=== PATIENT | female | born 1960 | race Caucasian/White ===

== ENCOUNTER 2020-04-27 15:17 | Inpatient (IN) | payer OTHER ==
[~2020-04-27] VITALS: Ht 160 cm; Wt 93.0 kg
[~2020-04-27 15:17] MED LIST: ADVAIR 250-501 EACH INH; CARISOPRODOL 3350 MG PO; CIPRO PO; CIPROFLOXACIN500 M3 PO; DILAUDID 4 MG TA4 M1 PO; FENTANYL PATCH75 MCG TP; FISH OIL 1,0001 EAC5 PO; FOLIC ACID 40400 MC1; HYDROCODON-ACE1 EAC5; KEFLEX500 MG PO; LEVSIN SL; PROTONIX40 M2; PROTONIX40 M2 PO; PROVENTIL; PYRIDIUM100 MG PO; SPIRIVA IH; VENTOLIN HFA INH8 GM INH; VESANOID10 MG; XANAX XR2 MG PO; ZANTAC 150MG T150 M1 OR
[2020-04-27 19:40] VITALS: BP 136/70
--- NOTE | 2020-04-27 19:40 | NUR ---
Pt. admitted to the unit from [facility]. Pt. is alert and oriented. She offers no complaints at this time. Pt. is steady on her feet. Amanda MILLER called and informed of admission.
[2020-04-27] MEDS ORDERED: LIDODERM1 EACH TOP (20:41)
[2020-04-27] MEDS ORDERED: MELATONIN10 M3 PO (20:42)
[2020-04-27] MEDS ORDERED: MUCINEX600 MG PO (20:43)
[2020-04-27] MEDS ORDERED: OXYCONTIN30 MG PO (20:45)
[2020-04-27] MEDS ORDERED: PANTOPRAZOLE SO40 M1 PO (20:46)
[2020-04-27] MEDS ORDERED: SENNA PLUS TAB1 EACH PO (20:47)
[2020-04-27] MEDS ORDERED: FLOMAX0.4 MG PO (20:48)
[2020-04-27] MEDS ORDERED: ACETAMINOPHEN-CO5 ML PO (20:49)
[2020-04-27] MEDS ORDERED: CALCIUM CARBON500 MG PO (20:50)
[2020-04-27] MEDS ORDERED: FLEXERIL PO (20:51)
[2020-04-27] MEDS ORDERED: COLACE100 MG PO (20:51)
[2020-04-27] MEDS ORDERED: COUGH SYRU100 MG/5 M PO (20:52)
[2020-04-27] MEDS ORDERED: MIRALAX119 GM PO (20:53)
[2020-04-27 23:55] LABS: CALCIUM 8.2 mg/dL (8.5-10.1); CREATININE 0.6 mg/dL (0.6-1.0); MAGNESIUM 1.8 mg/dL (1.8-2.4); POTASSIUM 4.3 mmol/L (3.5-5.1)
--- NOTE | 2020-04-28 05:07 | NUR ---
Pt. c/o back pain and ivp pain med given (see emar) with some relief of pain noted. Admission assessment and history is completed. No c/o shortness of breath this am. Up to the bathroom with standby assistance.
[2020-04-28 05:44] VITALS: BP 176/108
[2020-04-28 05:48] LABS: HEMATOCRIT 35.5 % (37.0-47.0); HEMOGLOBIN 11.6 gm/dL (12.0-15.0); MCH 28.8 pg (26.0-34.0); MCHC 32.7 g/dL (28.0-37.0); MCV 88.3 fL (80.0-100.0); RBC 4.03 mil/uL (4.20-5.00); RDW 16.8 % (10.5-14.5); WBC 17.2 thou/uL (4.0-11.0)
[2020-04-28 08:30] VITALS: BP 127/70
--- NOTE | 2020-04-28 13:17 | NUR ---
Received awake on bed. Due medications given as prescribed. On room air, with supplement O2 if she is desaturating. A+Ox4. On MS, not on telemetry; no complaints of chest pain, crushing sensation and heaviness. On heart healthy diet- tolerating well; no nausea, no vomiting and no abdominal pain noted. Continent of bowel and bladder- assisted going to the toilet, gait belt and standby assist. With SL at L foot- on IV antibiotics. Assisted in ADLs. Complained of pain, due PRN pain meds- pt with partial pain relief on current pain meds- Dr Felder informed and asked to review and prescribe pain meds. Pt's daughter Evelyn called complaining about pt's pain, and not being fed- informed pt's daughter that pt finished her meal this AM, and able to feed herself; with regards to pain meds- physician already informed re: pain meds; she also requested to talk to Practice Administrator- Dr Allen had his rounds this PM- pt's daughter's contact number given to physician- called Evelyn and updated her. Pt for IV access nurse consult- orders made- for possible midline or PICC line. To continue monitoring patient.
[2020-04-28 14:59] VITALS: BP 152/80
--- NOTE | 2020-04-28 15:24 | NUR ---
PT ADMITTED RELATED TO ASTHMA, PULMONARY ABCESS. CM REVIEWED CHART AND SPOKE WITH CARE TEAM. CM CALLED AND SPOKE WITH PT OVER THE PHONE THIS DAY. PT APPEARED TO BE A&O X4. CM ROLE INTRODUCED. PT INDICATED SHE LIVES IN A SENIOR HOUSING DUPLEX WITH HER DTR WITH NO STEPS TO ENTER AND NO STEPS INSIDE. PT INDICATED SHE HAS A NEUBLIZER AND INHALERS FOR USE AT HOME. PT INDICATED SHE HAS A PCP AT [facility] BUT CAN'T RECALL THEIR NAME. PT IS HOMELESS AFTER COVID AND HAD BEEN STAYING WITH HER DTR ON HER LOVESEAT. PT HAD HCBS BUT HASN'T HAD THEM SINCE AROUND NOVEMBER. [facility] PT HAD PULM CONSULTED AND IS ON IV ABX. CM TO FOLLOW INDICATED WITH DC PLANNING.
[2020-04-28 20:04] VITALS: BP 132/62
--- NOTE | 2020-04-28 22:58 | NUR ---
VAT CONSULTED FOR A PICC FOR LT ABX WITH A LUNG ABCESS. A 4FRSLPICC PLACED RUABASILIC. PLEASE SEE NI FOR DETAILS
[2020-04-29 07:32] VITALS: BP 127/75
--- NOTE | 2020-04-29 07:35 | NUR ---
ASSUMED CARE OF PT AT 1900HRS. PT AOX4 AND LETS NEEDS BE KNOWN. ASSESSMENT CHARTED. RUE SINGLE LUMEN PICC PLACED AND VERIFIED WITH XRAY. ABX TREATMENT CONTINUED. PT REPORTED SOME PAIN AND WAS TREATED WITH PRN PAIN MEDS. PT HAS SOB WITH EXERTION. PT WAS ABLE TO GET COMFORTABLE AND SLEEP PART OF THE SHIFT. VSS AND NO S/S OF ACUTE DISTRESS.
--- NOTE | 2020-04-29 10:23 | NUR ---
Received awake on bed. Due meds given as prescribed, able to swallow meds w/o difficulty. On room air, may have supplemental O2 as needed. A+Ox4. Vital signs stable. On MS, not on telemetry; no complaints of chest pain, crushing sensation and heaviness. On heart healthy diet- tolerating well; no nausea, no vomiting and no abdominal pain noted. Continent of bowel and bladder, able to go to the toilet with standby assist. With R upper arm PICC line in place, on IV antibiotics, flushing well. Complained of pain, due PRN pain meds given as prescribed. Pt requested for physician to change diet to regular if possible and to prescribe anti-anxiety medications- Dr Felder informed. Medication reconcilation checked and Dr Felder informed to review meds.
[2020-04-29 14:30] VITALS: BP 138/82
[2020-04-29 21:05] VITALS: BP 117/57
--- NOTE | 2020-04-30 00:13 | NUR ---
PATIENT ASSESSED AND IS ALERT X 4. SKIN WARM AND DRY. HAD A PULMONARY ABCESS NOTED. IV PICC LINE IN UPPER RIGHT ARM INFUSING VANCO AND ZOSYN. PAIN MEDICATION GIVEN FOR HEADACHE AND RIB PAIN. RIGHT UPPER PICC LINE PRESENT FLUSHES WELL. NO OTHER EDEMA NOTED. LUNGS CTA. WALKS TO BATHROOM PER SELF WITH STAND-BY ASSIST. VOIDING WELL. DOES HAVE PEROIDS OF ANXIETY AT TIMES ALPRAZOLAM GIVEM. 021 SAT 95%. ON ROOM AIR. PAIN IN RIB AREA AND ABDOMEN . PAIN . CONT PLAN OF CARE.
--- NOTE | 2020-04-30 05:17 | NUR ---
PATIENT UP WITH ASSIST TO BATHROOM. COMPLAINING OF PAIN IN BACK. PAIN MED GIVEN. AND WENT BACK TO SLEEP.
[2020-04-30 05:21] VITALS: BP 117/68
[2020-04-30 07:40] VITALS: BP 136/85
[2020-04-30] MEDS ORDERED: AUGMENTIN 875-1 EACH PO (10:40)
[2020-04-30] MEDS ORDERED: ALPRAZOLAM 0.50.5 M1 PO (10:40)
[2020-04-30] MEDS ORDERED: LINEZOLID600 MG PO (10:40)
[2020-04-30] MEDS ORDERED: PREDNISONE 20 M20 M1 PO (10:40)
[2020-04-30] MEDS ORDERED: NORVASC5 MG PO (10:40)
[2020-04-30 11:23] VITALS: BP 136/85
--- NOTE | 2020-04-30 12:27 | NUR ---
Vancomycin was not given at 1000am, due to waiting for vanc trough. Pharmacy called around 1145am, claiming that vanc trough was out, but since the patient had got the DC order, the staff did not need to administrate the 1000 am vanc.
--- NOTE | 2020-04-30 13:52 | NUR ---
CARE TEAM INDICATED THAT PT IS MEDICALLY STABLE TO DC HOME THIS DAY. CM SPOKE WITH PT SHE IS AWARE AND AGREEABLE. PHYSICIAN DISCHARGED PT HOME TO SELF CARE. NO OTHER CM INTERVENTION INDICATED. CASE CLOSED.
--- NOTE | 2020-04-30 14:13 | NUR ---
Patient left the phone international organizer in the room, patient claimed that she would pick it up on the next visit. Secratry left the phone international organizer in a bag with patient name label under the secratty desk.
--- NOTE | 2020-05-01 07:05 | NUR ---
PATIENT D/C PRIOR TO OT EVAL
== END 2020-04-30 12:36 | disposition home or self-care (01) | DRG 178 ==
LOC: 4W 15:17
PROVIDERS: Hospitalist; Nurse Practitioner Family; ADMIT Hospitalist; ATTEND Hospitalist
PROC: 02HV33Z Insertion of Infusion Device into Superior Vena Cava, Percutaneous Approach (ICD-10-PCS; principal; 2020-04-28)
DX: J85.1 Abscess of lung with pneumonia (principal); J44.0 Chronic obstructive pulmonary disease with (acute) lower respiratory infection; I10 Essential (primary) hypertension; E66.9 Obesity, unspecified; F41.9 Anxiety disorder, unspecified; G43.909 Migraine, unspecified, not intractable, without status migrainosus; K21.9 Gastro-esophageal reflux disease without esophagitis; M06.9 Rheumatoid arthritis, unspecified; G89.29 Other chronic pain; M54.5 Low back pain; Z68.36 Body mass index [BMI] 36.0-36.9, adult; Z90.49 Acquired absence of other specified parts of digestive tract; Z90.721 Acquired absence of ovaries, unilateral; Z80.3 Family history of malignant neoplasm of breast; Z87.891 Personal history of nicotine dependence
CPT/HCPCS: 10047; 27000

== ENCOUNTER → 2020-05-18 | Outpatient (CLI) | payer OTHER ==
[~2020-05-18] MED LIST changes: +ACETAMINOPHEN-CO5 ML PO; +ALPRAZOLAM 0.50.5 M1 PO; +AUGMENTIN 875-1 EACH PO; +CALCIUM CARBON500 MG PO; +COLACE100 MG PO; +COUGH SYRU100 MG/5 M PO; +FLEXERIL PO; +FLOMAX0.4 MG PO; +LIDODERM1 EACH TOP; +LINEZOLID600 MG PO; +MELATONIN10 M3 PO; +MIRALAX119 GM PO; +MUCINEX600 MG PO; +NORVASC5 MG PO; +OXYCONTIN30 MG PO; +PANTOPRAZOLE SO40 M1 PO; +PREDNISONE 20 M20 M1 PO; +SENNA PLUS TAB1 EACH PO
== END ==
LOC: RAD 11:11
PROVIDERS: ATTEND Internal Medicine Pulmonary Disease
DX: R91.1 Solitary pulmonary nodule (principal); J98.4 Other disorders of lung

== ENCOUNTER → 2020-07-22 | Outpatient (CLI) | payer OTHER | LOC: RAD 08:40 | PROVIDERS: ATTEND Internal Medicine | DX: J84.10 Pulmonary fibrosis, unspecified (principal); R91.8 Other nonspecific abnormal finding of lung field ==